=== PATIENT | female | born 1985 | race Caucasian/White ===

== ENCOUNTER 2019-09-12 13:32 | Emergency (ER) | payer OTHER ==
[2019-09-12] MEDS ORDERED: LIDOCAINE 1% 20 ML MDV ONE (14:50)
[2019-09-12] MEDS ORDERED: TETANUS & DIPHTHERIA TOX,ADULT 0.5 ML VIAL ONE (15:43)
--- NOTE | 2019-09-12 15:49 | ER ---
Nurse's Notes [facility] Name: Virginie Craig Age: 34 yrs Sex: Female : 1985 Arrival Date: 09/12/2019 Time: 13:34 Bed 9 Private MD: Diagnosis: laceration without foreign body to right hand;abrasion to right leg Presentation: 09/12 13:57 Presenting complaint: Patient states: fell down 6-7 concrete steps, laceration to right iw thumb webbing and abrasion to right leg, leg feels bruised, denies hitting head. Care prior to arrival: None. 13:57 Acuity: MJ 4 13:57 Method Of Arrival: Ambulatory iw 13:58 Mechanism of Injury: Fall down 6 steps. Trauma event details: Injury occurred in the [facility], Injury occurred: in a public building. Injury occurred: September 12, 2019. 14:01 Transition of care: patient was not received from another setting of care. Onset of symptoms was September 12, 2019. Risk Assessment: Do you want to hurt yourself or someone else? Patient reports no desire to harm self or others. Initial Sepsis Screen: Does the patient meet any 2 criteria? No. Patient's initial sepsis screen is negative. Does the patient have a suspected source of infection? No. Patient's initial sepsis screen is negative. 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 - Social history:: Smoking status: Patient denies any tobacco usage or history of. - Ebola Screening: : Patient negative for fever greater than or equal to 101.5 degrees Fahrenheit, and additional compatible Ebola Virus Disease symptoms Patient denies exposure to infectious person Patient denies travel to an Ebola-affected area in the 21 days before illness onset No symptoms or risks identified at this time. Screenin:00 Abuse screen: Denies threats or abuse. Denies injuries from another. Tuberculosis iw screening: No symptoms or risk factors identified. 15:00 Nutritional screening: No deficits noted. Fall Risk None identified. iw Assessment: 14:56 General: Appears in no apparent distress. uncomfortable, Behavior is calm, cooperative. iw Pain:. Neuro: Level of Consciousness is awake, alert, obeys commands, Oriented to person, place, time, situation, Moves all extremities. Respiratory: Airway is patent Respiratory effort is even, unlabored, Respiratory pattern is regular, symmetrical. 15:30 Injury Description: Laceration sustained to Right first web space is 0.5 to 2.5 cm iw long, was sustained 1-2 hours ago. Vital Signs: 14:00 BP 127 / 100; Pulse 110; Resp 18 S; Temp 99.2; Pulse Ox 99% on R/A; Weight 86.18 kg; iw Height 5 ft. 5 in. (165.10 cm); Pain 8/10; 14:00 Body Mass Index 31.62 (86.18 kg, 165.10 cm) iw ED Course: 13:34 Patient arrived in ED. mr 13:58 Triage completed. iw 14:01 Arm band placed on. iw 14:44 Didi Kapadia, RN is Primary Nurse. iw 14:45 Tonio Argueta FNP-C is PHCP. la1 14:45 Fabrizio Meyers MD is Attending Physician. la1 16:07 Patient has correct armband on for positive identification. iw 16:08 No provider procedures requiring assistance completed. Patient did not have IV access iw during this emergency room visit. Administered Medications: 15:50 Drug: Tetanus-Diphtheria Toxoid Adult 0.5 ml {Metrology Engineer: [place]. Exp: iw 11/17/2019. Lot #: [id number]. } Route: IM; Site: right deltoid; Outcome: 15:49 Discharge ordered by . la1 16:08 Discharged to home ambulatory, with family. iw 16:08 Condition: good 16:08 Discharge instructions given to patient, family, Instructed on discharge instructions, follow up and referral plans. wound care, Demonstrated understanding of instructions, follow-up care, wound care. 16:09 Patient left the ED. iw Signatures: Kaitlynn Hannah Irene, RN RN iw Tonio Argueta, ASSEMBLY ASSOCIATE-C ASSEMBLY ASSOCIATE-Cla1
--- NOTE | 2019-09-12 15:49 | EDPHYS ---
Physician Documentation [facility] Name: Virginie Craig Age: 34 yrs Sex: Female : 1985 Arrival Date: 09/12/2019 Time: 13:34 Bed 9 Private MD: ED Physician Fabrizio Meyers HPI: 09/12 15:44 This 34 yrs old Female presents to ER via Ambulatory with complaints of Fall la1 Injury, Laceration To Hand. 15:44 Details of fall: The patient fell from a height, down approximately 6 stairs. Onset: la1 The symptoms/episode began/occurred just prior to arrival. Associated injuries: The patient sustained right sanz, abrasion, contusion, hematoma, swelling, Right first web space, laceration, 1.5 cm(s). Severity of symptoms: At their worst the symptoms were moderate, in the emergency department the symptoms have improved. The patient has not experienced similar symptoms in the past. 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 - Social history:: Smoking status: Patient denies any tobacco usage or history of. - Ebola Screening: : Patient negative for fever greater than or equal to 101.5 degrees Fahrenheit, and additional compatible Ebola Virus Disease symptoms Patient denies exposure to infectious person Patient denies travel to an Ebola-affected area in the 21 days before illness onset No symptoms or risks identified at this time. ROS: 15:45 Constitutional: Negative for fever, chills, and weight loss, ENT: Negative for injury, la1 pain, and discharge, Neck: Negative for injury, pain, and swelling, Cardiovascular: Negative for chest pain, palpitations, and edema, Respiratory: Negative for shortness of breath, cough, wheezing, and pleuritic chest pain, Abdomen/GI: Negative for abdominal pain, nausea, vomiting, diarrhea, and constipation, Back: Negative for injury and pain. 15:45 Neuro: Negative for headache, weakness, numbness, tingling, and seizure. 15:45 MS/extremity: Positive for abrasion, contusion, swelling, of the right sanz. 15:45 Skin: Positive for laceration(s), of the Right first web space. Exam: 15:45 Constitutional: This is a well developed, well nourished patient who is awake, alert, la1 and in no acute distress. Head/Face: Normocephalic, atraumatic. Chest/axilla: Normal chest wall appearance and motion. Nontender with no deformity. No lesions are appreciated. Respiratory: No increased work of breathing, no retractions or nasal flaring. Abdomen/GI: Soft, non-tender, with normal bowel sounds. MS/ Extremity: Pulses equal, no cyanosis. Neurovascular intact. Full, normal range of motion. 15:45 Musculoskeletal/extremity: ROM: intact in all extremities, Pulses: noted to be 3+ in the right radial artery, right posterior tibial artery, right dorsalis pedis artery, left radial artery, left posterior tibial artery and left dorsalis pedis artery, Perfusion: the extremity is normally perfused throughout, pink, warm, with brisk capillary refill, Weight bearing: able to fully bear weight. 15:45 Skin: injury, laceration(s), the wound is approximately 1.5 cm(s), with a depth of 1 cm(s), of the Right first web space, that can be described as clean, linear, without bleeding. Vital Signs: 14:00 BP 127 / 100; Pulse 110; Resp 18 S; Temp 99.2; Pulse Ox 99% on R/A; Weight 86.18 kg; iw Height 5 ft. 5 in. (165.10 cm); Pain 8/10; 14:00 Body Mass Index 31.62 (86.18 kg, 165.10 cm) iw Laceration: 15:47 Wound Repair of 1.5cm ( 0.6in ) subcutaneous laceration to right hand. Linear shaped.. la1 Distal neuro/vascular/tendon intact. Anesthesia: Local anesthetic administered with 3 mls of 1% lidocaine. Wound prep: Moderate cleansing, Copious irrigation. Skin closed with 3 4-0 Prolene using simple sutures and sterile technique. Patient tolerated well. MDM: 14:45 Patient medically screened. la1 15:49 Data reviewed: vital signs, nurses notes, and as a result, I will discharge patient. la1 Data interpreted: Pulse oximetry: on room air is 99 %. Interpretation: normal. Counseling: I had a detailed discussion with the patient and/or guardian regarding: the historical points, exam findings, and any diagnostic results supporting the discharge/admit diagnosis, the need for outpatient follow up, a family practitioner, to return to the emergency department if symptoms worsen or persist or if there are any questions or concerns that arise at home. Special discussion: Based on the history and exam findings, there is no indication for further emergent testing or inpatient evaluation. I discussed with the patient/guardian the need to see the primary care provider for further evaluation of the symptoms. Administered Medications: 15:50 Drug: Tetanus-Diphtheria Toxoid Adult 0.5 ml {Legal Recruiter: [place]. Exp: iw 11/17/2019. Lot #: [id number]. } Route: IM; Site: right deltoid; Disposition: 16:50 Co-signature as Attending Physician, Fabrizio Meyers MD. rn Disposition: 09/12/19 15:49 Discharged to Home. Impression: laceration without foreign body to right hand, abrasion to right leg. - Condition is Stable. - Discharge Instructions: Abrasion, Sutured Wound Care, Abrasion, [id number], Sutured Wound Care, [id number]. - Work release form, Medication Reconciliation Form, Thank You Letter form. - Follow up: Private Physician; When: 7 - 10 days; Reason: Wound Recheck, Recheck today's complaints, Re-evaluation by your physician. - Problem is new. - Symptoms have improved. Signatures: Didi Kapadia RN RN iw Nieto, Roman, MD MD rn Attema, Lee, PUPPET MAKER-C PUPPET MAKER-Cla1 Corrections: (The following items were deleted from the chart) 16:09 15:49 09/12/2019 15:49 Discharged to Home. Impression: laceration without foreign body iw to right hand; abrasion to right leg. Condition is Stable. Forms are Medication Reconciliation Form, Thank You Letter, Antibiotic Education, Prescription Opioid Use. Follow up: Private Physician; When: 7 - 10 days; Reason: Wound Recheck, Recheck today's complaints, Re-evaluation by your physician. Problem is new. Symptoms have improved. la1
[2019-09-12 22:40] VITALS: BP 127/100; TEMP 99.2; O2SAT 99
== END 2019-09-12 16:09 | disposition home or self-care (01) ==
LOC: ER 13:32
PROC: 0JQJ0ZZ Repair Right Hand Subcutaneous Tissue and Fascia, Open Approach (ICD-10-PCS; principal; 2019-09-12)
DX: S61.411A Laceration without foreign body of right hand, initial encounter (principal); S80.811A Abrasion, right lower leg, initial encounter; W10.9XXA Fall (on) (from) unspecified stairs and steps, initial encounter; Y93.9 Activity, unspecified; Y92.9 Unspecified place or not applicable; Z23 Encounter for immunization; Z88.0 Allergy status to penicillin; E78.5 Hyperlipidemia, unspecified
CPT/HCPCS: 90471; 90714; 99283

== ENCOUNTER 2019-09-20 18:51 | Emergency (ER) | payer OTHER ==
--- NOTE | 2019-09-20 19:23 | ER ---
Nurse's Notes [facility] Name: Virginie Craig Age: 34 yrs Sex: Female : 1985 Arrival Date: 09/20/2019 Time: 18:53 Bed 15 Private MD: Diagnosis: Encounter for removal of sutures Presentation: 09/20 19:09 Presenting complaint: Patient states: she is here for suture removal. Transition of bb care: patient was not received from another setting of care. Onset of symptoms was September 20, 2019. Risk Assessment: Do you want to hurt yourself or someone else? Patient reports no desire to harm self or others. Initial Sepsis Screen: Does the patient meet any 2 criteria? No. Patient's initial sepsis screen is negative. Does the patient have a suspected source of infection? No. Patient's initial sepsis screen is negative. Care prior to arrival: None. 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 - Coronavirus screen:: The patient has NOT traveled to [place], [place], or [place] in the past 14 days. Proceed with normal triage process as indicated. - Social history:: Smoking status: unknown. - Ebola Screening: : No symptoms or risks identified at this time. Vital Signs: 19:10 BP 141 / 86; Pulse 96; Resp 20 S; Temp 98.1(O); Pulse Ox 99% ; Weight 86.18 kg (R); bb Height 5 ft. 5 in. (165.10 cm) (R); Pain 0/10; 19:10 Body Mass Index 31.62 (86.18 kg, 165.10 cm) bb ED Course: 18:53 Patient arrived in ED. as 18:56 [facility]. kb 18:56 Fabrizio Meyers MD is Attending Physician. kb 19:09 Triage completed. bb 19:10 Arm band placed on Patient placed in an exam room, on a stretcher, on pulse oximetry. bb Administered Medications: No medications were administered Outcome: 19:12 Discharge ordered by . femi 19:12 Patient left the ED. femi Signatures: Trudi Beard FNP-C FNP-Lynette Mendosa Brenda, RN RN bb
--- NOTE | 2019-09-20 19:23 | EDPHYS ---
Physician Documentation [facility] Name: Virginie Craig Age: 34 yrs Sex: Female : 1985 Arrival Date: 09/20/2019 Time: 18:53 Bed 15 Private MD: ED Physician Fabrizio Meyers HPI: 09/20 19:14 This 34 yrs old Female presents to ER via Ambulatory with complaints of kb Suture Removal. 19:14 The patient has sutures on the Right first web space. Previous treatment: The patient kb was initially treated on September 12, 2019. Sutures/drew progress: The patient has no c/o's. The wound is well-healing with no redness, swelling, discharge, or dehiscence reported. The patient has not experienced similar symptoms in the past. The patient has been recently seen at the [facility] Emergency Department. Pt reports she had sutures placed 8 days ago to repair laceration. 3 sutures were placed, but one came out the first day.. 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 - Coronavirus screen:: The patient has NOT traveled to [place], [place], or [place] in the past 14 days. Proceed with normal triage process as indicated. - Social history:: Smoking status: unknown. - Ebola Screening: : No symptoms or risks identified at this time. ROS: 19:12 Constitutional: Negative for fever, chills, and weight loss, Cardiovascular: Negative kb for chest pain, palpitations, and edema, Respiratory: Negative for shortness of breath, cough, wheezing, and pleuritic chest pain, Abdomen/GI: Negative for abdominal pain, nausea, vomiting, diarrhea, and constipation, Back: Negative for injury and pain, MS/Extremity: Negative for injury and deformity, Neuro: Negative for headache, weakness, numbness, tingling, and seizure. 19:12 Skin: Positive for laceration(s), of the Right first web space, sutures in place. Exam: 19:12 Constitutional: This is a well developed, well nourished patient who is awake, alert, kb and in no acute distress. Head/Face: Normocephalic, atraumatic. Chest/axilla: Normal chest wall appearance and motion. Nontender with no deformity. No lesions are appreciated. Cardiovascular: Regular rate and rhythm with a normal S1 and S2. No gallops, murmurs, or rubs. Normal PMI, no JVD. No pulse deficits. Respiratory: Lungs have equal breath sounds bilaterally, clear to auscultation and percussion. No rales, rhonchi or wheezes noted. No increased work of breathing, no retractions or nasal flaring. Abdomen/GI: Soft, non-tender, with normal bowel sounds. No distension or tympany. No guarding or rebound. No evidence of tenderness throughout. MS/ Extremity: Pulses equal, no cyanosis. Neurovascular intact. Full, normal range of motion. Neuro: Awake and alert, GCS 15, oriented to person, place, time, and situation. Cranial nerves II-XII grossly intact. Motor strength 5/5 in all extremities. Sensory grossly intact. Cerebellar exam normal. Normal gait. 19:12 Skin: Wound recheck: Suture laceration closure: the wound is healing well, the edges are well approximated, no evidence of dehiscence, no drainage, no erythema, no swelling. Vital Signs: 19:10 BP 141 / 86; Pulse 96; Resp 20 S; Temp 98.1(O); Pulse Ox 99% ; Weight 86.18 kg (R); bb Height 5 ft. 5 in. (165.10 cm) (R); Pain 0/10; 19:10 Body Mass Index 31.62 (86.18 kg, 165.10 cm) bb Procedures: 19:12 Suture/Staple removal: Removed 2 sutures, from Right first web space, site appears well kb healed, Patient tolerated well. MDM: 19:10 Patient medically screened. kb 19:12 Data reviewed: vital signs, nurses notes. Data interpreted: Pulse oximetry: on room air kb is 99 %. Interpretation: normal. Counseling: I had a detailed discussion with the patient and/or guardian regarding: the historical points, exam findings, and any diagnostic results supporting the discharge/admit diagnosis, the need for outpatient follow up, a family practitioner, to return to the emergency department if symptoms worsen or persist or if there are any questions or concerns that arise at home. Administered Medications: No medications were administered Disposition: 09/21 07:01 Co-signature as Attending Physician, Fabrizio Meyers MD. rn Disposition: 09/20/19 19:12 Discharged to Home. Impression: Encounter for removal of sutures. - Condition is Stable. - Discharge Instructions: Suture Removal, Care After. - Medication Reconciliation Form, Thank You Letter, Antibiotic Education, Prescription Opioid Use form. - Follow up: Emergency Department; When: As needed; Reason: Worsening of condition. Follow up: Private Physician; When: 2 - 3 days; Reason: Recheck today's complaints, Continuance of care, Re-evaluation by your physician. Signatures: Trudi Beard FNP-C FNP-[place] RN RN Fabrizio Cisneros MD MD rn bariatric: (The following items were deleted from the chart) 09/20 19:12 19:12 09/20/2019 19:12 Discharged to Home. Impression: Encounter for removal of kb sutures. Condition is Stable. Forms are Medication Reconciliation Form, Thank You Letter, Antibiotic Education, Prescription Opioid Use. Follow up: Emergency Department; When: As needed; Reason: Worsening of condition. Follow up: Private Physician; When: 2 - 3 days; Reason: Recheck today's complaints, Continuance of care, Re-evaluation by your physician. kb
[2019-09-20 21:55] VITALS: BP 141/86; TEMP 98.1; O2SAT 99
== END 2019-09-20 19:12 | disposition home or self-care (01) ==
LOC: ER 18:51
DX: Z48.02 Encounter for removal of sutures (principal); Z88.0 Allergy status to penicillin; E78.5 Hyperlipidemia, unspecified
CPT/HCPCS: 99282